=== PATIENT | male | born 1990 | race American Indian/Alaskan Native ===

== ENCOUNTER 2019-04-08 14:00 | Emergency (ER) | payer MEDICAID ==
[2019-04-08 14:09] VITALS: BP 124/79
--- NOTE | 2019-04-08 14:10 | Emergency Department Report ---
Chief Complaint: Medical Clearance Stated Complaint: WEAKNESS Time Seen by Provider: 04/08/19 14:08 - ROS Review of Systems: 28 yo male with bilateral knee pain, no trauma., no difficulty with walking MSE performed referred to medicine and orthopedic physicians MSE screening note: Focused history and physical exam performed. Due to findings the following was ordered: ED Disposition for MSE Clinical Impression: Encounter for medical screening examination Disposition: MED SCREENING EXAM-LEFT Condition: Stable Referrals: BRADY MOISE MD [Staff Physician] - 3-5 Days BRIAN MANNING MD [Staff Physician] - 3-5 Days
== END 2019-04-08 14:10 | disposition left against medical advice (07) ==
LOC: ED 14:00
DX: M25.561 Pain in right knee (principal); M25.562 Pain in left knee
CPT/HCPCS: 99283

== ENCOUNTER 2021-09-17 13:44 | Emergency (ER) | payer MEDICAID ==
[2021-09-17 13:47] VITALS: BP 127/76
== END 2021-09-18 02:48 | disposition left against medical advice (07) ==
LOC: ED 13:44
DX: R53.1 Weakness (principal); M79.673 Pain in unspecified foot; Z53.21 Procedure and treatment not carried out due to patient leaving prior to being seen by health care provider